=== PATIENT | female | born 1980 | race Caucasian/White ===

== ENCOUNTER 2021-05-18 13:39 | Outpatient (CLI) | payer OTHER, SELFPAY ==
[2021-05-18 17:36] LABS: Lactate Dehydrogenase 318 U/L (313-618)
[2021-05-21 22:53] LABS: CA-125 35 U/mL (<35)
== END 2021-05-18 13:40 | disposition home or self-care (01) ==
LOC: ANHLAB 13:47
PROVIDERS: Visit Provider Obstetrics & Gynecology Gynecologic Oncology
DX: D21.9 Benign neoplasm of connective and other soft tissue, unspecified (principal); N92.0 Excessive and frequent menstruation with regular cycle; N94.6 Dysmenorrhea, unspecified
CPT/HCPCS: 36415; 83615; 86304

== ENCOUNTER 2021-06-04 12:12 | Outpatient (CLI) | payer OTHER, SELFPAY ==
--- NOTE | ~2021-06-04 | MR_ITS ---
EXAMINATION: MR pelvis w con DATE: 06/04/2021 13:16 INDICATION: Uterine fibroid. TECHNIQUE: Magnetic resonance imaging (MRI) of the pelvis was performed with 11 mL MultiHance intrave nous contrast. Sequences included axial T1-weighted FS FSE and postcontrast axial, coronal, and sagit toy T1-weighted FS FSE. COMPARISON: None. FINDINGS: There is a 13.0 x 9.5 x 10.2 cm enhancing mass in the central uterus. The ovaries are normal. There a re no pathologically enlarged lymph nodes. There is no free intraperitoneal fluid. IMPRESSION: 1. 13.0 cm mass in the central uterus, which may be a submucosal fibroid or a sarcoma. Reviewed, dictated and finalized at location A. GENCY COMMUNICATIONS OFFICER IMPRESSION: 1. 13.0 cm mass in the central uterus, which may be a submucosal fibroid or a s arcoma.
[2021-06-04 12:46] LABS: Estimated Glomerular Filt Rate > 60
== END 2021-06-04 12:13 | disposition home or self-care (01) ==
LOC: ANHIMG 12:22
PROVIDERS: PCP Obstetrics & Gynecology Gynecologic Oncology; Visit Provider Obstetrics & Gynecology Gynecologic Oncology
DX: N85.8 Other specified noninflammatory disorders of uterus (principal)
CPT/HCPCS: 72196; A9577